=== PATIENT | male | born 1985 | race Caucasian/White ===

== ENCOUNTER 2017-01-12 07:36 | Day surgery (SDC) | payer BC ==
[~2017-01-12 07:36] MED LIST: ceFAZolin 2 GM in Premix Bag 1 BAG IV SCH
[2017-01-12] MEDS ORDERED: [UNRECOGNIZED DRUG - OTHER] NAS ONE (07:37)
[2017-01-12] MEDS ORDERED: Lactated Ringers 1,000 ML IV SCH (07:45)
[2017-01-12] MEDS ORDERED: Remifentanil 1 MG Vial ONE (07:49)
[2017-01-12] MEDS ORDERED: Propofol 200 MG/20 ML SDV ONE ×2 (07:53→12:27)
[2017-01-12] MEDS ORDERED: fentaNYL 100 MCG/2 ML SDV ONE (07:53)
[2017-01-12] MEDS ORDERED: Dexamethasone 4 MG/ML 5 ML MDV ONE ×2 (07:54→08:46)
[2017-01-12] MEDS ORDERED: Midazolam 1 MG/ML 2 ML SDV ONE (07:54)
[2017-01-12] MEDS ORDERED: Lidocaine 1% 20 ML MDV ONE (07:54)
[2017-01-12] MEDS ORDERED: EPINEPHrine 1 MG/ML SDV ONE (07:54)
[2017-01-12] MEDS ORDERED: Thrombin (Bovine) 5,000 Unit Kit ONE (07:55)
[2017-01-12] MEDS ORDERED: Oxymetazoline 0.05% Nasal Spray 15 ML Bottle ONE (07:55)
[2017-01-12] MEDS ORDERED: Lidocaine 2% with EPINEPHrine 1:100,000 20 ML MDV ONE (07:55)
--- NOTE | 2017-01-12 08:05 | PCM.PREANE ---
Preanesthetic Assessment - Anesthesia/Transfusion/Family Hx Anesthesia History: Prior Anesthesia Without Reaction Family History of Anesthesia Reaction: No Transfusion History: No Prior Transfusion(s) Intubation History: Unknown - Review of Systems General: No Symptoms Pulmonary: No Symptoms Cardiovascular: No Symptoms Gastrointestinal: No Symptoms Neurological: No Symptoms Other: Reports: None - Physical Assessment O2 Sat by Pulse Oximetry: 98 Respiratory Rate: 16 Vital Signs: Last Vital Signs Temp 36.7 C 01/12/17 07:52 Pulse 57 L 01/12/17 07:52 Resp 16 01/12/17 07:52 BP 144/84 H 01/12/17 07:52 Pulse Ox 98 01/12/17 07:52 Height: 1.83 m Weight: 86.183 kg ASA Class: 2 Mental Status: Alert & Oriented x3 Airway Class: Mallampati = 2 Dentition: Reports: Normal Dentition Thyro-Mental Finger Breadths: 3 Mouth Opening Finger Breadths: 3 ROM/Head Extension: Full Lungs: Clear to Auscultation, Normal Respiratory Effort Cardiovascular: Regular Rate, Regular Rhythm - Allergies Allergies/Adverse Reactions: Allergies Allergy/AdvReac Type Severity Reaction Status Date / Time No Known Allergies Allergy Verified 01/10/17 08:53 - Blood Blood Available: No - Anesthesia Plan Pre-Op Medication Ordered: None - Acknowledgements Anesthesia Type Planned: General Anesthesia Pt an Appropriate Candidate for the Planned Anesthesia: Yes Alternatives and Risks of Anesthesia Discussed w Pt/Guardian: Yes Pt/Guardian Understands and Agrees with Anesthesia Plan: Yes PreAnesthesia Questionnaire HEENT History: Reports: Sinusitis (nasal polyps) Respiratory History: Reports: Asthma (mild) - Past Surgical History Head Surgeries/Procedures: Reports: None HEENT Surgical History: Reports: Adenoidectomy, Naso-Sinus Surgery (polyps regrew, on prednisone 20 mg), Tonsillectomy - SUBSTANCE USE Smoking Status *Q: Never Smoker - HOME MEDS Home Medications: Home Meds Albuterol Sulfate [Proair Hfa] 1 - 2 puff INH ASDIRECTED PRN 01/10/17 [History] Dexamethasone [Decadron 0.1% Ophth Soln] 2 drop NASBOTH BID 01/10/17 [History] - CURRENT (IN HOUSE) MEDS Current Meds: Current Medications Cefazolin Sodium/Dextrose 2 gm (/ Premix) 50 mls @ 100 mls/hr IV ONETIME SEUN Lactated Ringer's (Ringers, Lactated) 1,000 mls @ 125 mls/hr IV ASDIRECTED SEUN Last Admin: 01/12/17 07:54 Dose: 125 mls/hr Discontinued Medications Dexamethasone (Dexamethasone) Confirm Administered Dose 20 mg .ROUTE .STK-MED ONE Stop: 01/12/17 07:55 Epinephrine HCl (Adrenalin 1:1000) Confirm Administered Dose 3 mg .ROUTE .STK- MED ONE Stop: 01/12/17 07:55 Fentanyl (Sublimaze) Confirm Administered Dose 100 mcg .ROUTE .STK-MED ONE Stop: 01/12/17 07:54 Propofol (Diprivan 50 Ml) Confirm Administered Dose 100 mls @ as directed .ROUTE .STK-MED ONE Stop: 01/12/17 07:50 Lidocaine HCl (Xylocaine 1%) Confirm Administered Dose 20 ml .ROUTE .STK-MED ONE Stop: 01/12/17 07:55 Lidocaine/Epinephrine (Xylocaine 2% With Epinephrine 1:100,000) Confirm Administered Dose 20 ml .ROUTE .STK-MED ONE Stop: 01/12/17 07:56 Midazolam HCl (Versed 1 Mg/Ml) Confirm Administered Dose 2 mg .ROUTE .STK-MED ONE Stop: 01/12/17 07:55 Oxymetazoline HCl (Afrin Original 0.05% Nasal [place]) Confirm Administered Dose 30 ml .ROUTE .STK-MED ONE Stop: 01/12/17 07:56 Propofol (Diprivan 20 Ml) Confirm Administered Dose 200 mg .ROUTE .STK-MED ONE Stop: 01/12/17 07:54 Remifentanil (Ultiva) Confirm Administered Dose 2 mg .ROUTE .STK-MED ONE Stop: 01/12/17 07:50 Thrombin (Thrombin-Jmi) Confirm Administered Dose 5,000 unit .ROUTE .STK-MED ONE Stop: 01/12/17 07:56
[2017-01-12] MEDS ORDERED: Ondansetron 4 MG/2 ML SDV ONE (08:46)
[2017-01-12] MEDS ORDERED: Rocuronium 10 MG/ML 10 ML Syringe ONE (08:46)
[2017-01-12] MEDS ORDERED: Neostigmine Methylsulfate 1 MG/ML 5 ML Syringe ONE (08:46)
--- NOTE | 2017-01-12 09:56 | PCM.HPR ---
H & P Addendum review - H & P Addendum Review Date of Original H & P: 12/21/16 Date Reviewed: 01/12/17 Time Reviewed: 09:40 Patient was Examined: No Changes (Patient was counselled again about the steroid impregnated snius splints that will / maybe inserted post op and post op instructions also provided. He agrees and understands.)
[2017-01-12] MEDS ORDERED: Labetalol 100 MG/20 ML MDV ONE (12:29)
[2017-01-12] MEDS ORDERED: ceFAZolin 1 GM Vial ONE (12:29)
[2017-01-12] MEDS ORDERED: Mineral Oil/Petrolatum Ophth Oint 3.5 GM Tube ONE (12:29)
[2017-01-12] MEDS ORDERED: fentaNYL 100 MCG/2 ML SDV IVPUSH PRN (12:32)
--- NOTE | 2017-01-12 13:48 | PCM.OPNOTE ---
- General Post-Op/Procedure Note Date of Surgery/Procedure: 01/12/17 Condition: Good Free Text/Narrative:: Pre operative diagnosis: Nasal obstruction, Bilateral nasal polyps, chronic sinusitis - dory maxillary, ethmoid, sphenoid and frontal. Post operative diagnosis: As above Procedure: Bilateral Endoscopic sinus surgery - middle meatal antrostomy right [ CPT 13857 ], middle meatus antrostomy and removal of polyp left [CPT 67659] uncinectomy, right sphenoidotomy with removal of polyp [CPT 02055] , posterior etmoidectomy (completion) with polypectomy - ant and posterior ethmoids [81952 ( 50)], exploration of frontal sinus - bilateral [CPT 38026 (50)] , Sinus Navigation [ 74303] Surgeon: Estephania Dickens MD Anesthesia: GA Anesthesiologist: Ajay Sexton Date of procedure: 01/12/2017 Indications: Patient presented to my office with the progressive bilateral nasal obstruction. Admission he was found to have bilateral grade 3 nasal polyps. He had previously undergone nasal septoplasty and bilateral balloons angioplasties with the ethmoidectomies 3 years ago. He underwent maximal medical therapy along with a course of oral and topical steroids - with extremely limited response or improvement in his symptoms. A CT scan of nose and paranasal sinuses was performed and showed extensive bilateral sinonasal polyposis and sinusitis. He was consented for surgery. Findings: Minimal rightward deviation of nasal septum. Small posterior inferior septal perforation. Bilateral grade 2 nasal polyps - the ethmoid, right sphenoid and left maxillary. Polypoid changes in right maxillary sinus mucosa and of bilateral uncinate processes. Also polypoid degeneration of the mucosa of middle turbinate. Creamy purulence from the left maxillary sinus cheesy material from the left maxillary sinus; polypoid degeneration of bilateral frontal recesses. irrigated. Operation details: An informed consent was obtained. A time out was performed and the patient was brought back to the operating room. Gen. anesthesia was administered with an endotracheal tube. Bilateral eyes were left exposed and lubricating ointment was inserted into the eyes. A pharyngeal pack was placed. Bilateral nasal cavities were packed with Afrin soaked pledgets. After appropriate period of decongestion - these were removed. A 0 degree rigid nasal endoscope was used to examine bilateral nasal cavities and photo documentation was obtained. The Medtronic compact fusion navigation system was set up and the Tracker was fixed to the fore head as per protocol and successful registration was obtained - findings as above. The left middle turbinate axilla and the polyps were infiltrated with 2% lidocaine and 1 in 100,000 epinephrine-a total of 2.0 ml was used. Similar injections were performed on the right side and further 2.0 ml was used on this side. A cottonoid pledget soaked in 1: 5000 epinephrine each was placed in the middle meatus, draping over the middle turbinate axilla - this was done bilaterally. The left side was addressed first. After appropriate period of decongestion the cottonoid pledgets were removed. The middle turbinate was gently medialized with freer elevator and the 0 rigid nasal endoscope was introduced into the middle meatus. Using straight Tricut microdebrider blade the nasal polyps from the left middle meatus were debrided. Most of the polypoid degenerated mucosa from the middle turbinate was also removed leaving the underlying healthy mucosa intact. Uncinectomy was performed using a microdebrider removing the uncinate process and overlying polypoid mucosa. The left maxillary sinus antrum was enlarged using through cuts and microdebrider. Polyps were also removed from the left maxillary sinus. A Irvin Halie was also used for this purpose. Extensive amount of whitish caseous material was suctioned out and purulence was also seen and suction. Left maxillary sinus was thoroughly irrigated with 150 mL of saline. Attention was then directed towards the residual cellular septations and polypoid mucosa in the region of posterior ethmoids and the residual cells were removed. The frontal recess was then examined and there was polypoid mucosa. The sinus was irrigated and suctioned out - clear return. The site was then packed with epinephrine soaked pledgets. Attention was then directed towards the right side. The cottonoid pledgets were removed. The middle turbinate was gently medialized with freer elevator and the 0 rigid nasal endoscope was introduced into the middle meatus. again using the microdebrider polyps from the ethmoid sinuses and the polypoid degeneration overlying the middle turbinate mucosa was removed. Healthy mucosa over the middle turbinate was preserved. The uncinate process was removed with the microdebrider along with overlying polypoid degenerated mucosa. The maxillary antrostomy was enlarged using through cuts and microdebrider. Minimal polypoid mucosa was observed - no kwaku polyposis of the maxillary sinus. The sinus was irrigated thoroughly with 100 mL of saline. Further polyps and polypoid mucosa was removed from the region of anterior and posterior ethmoids and the residual cellular septations and some of the residue intact posterior ethmoid cells were also removed. The sphenoidotomy was enlarged and polyps were removed from the sphenoid sinus. There are also polyps in the region of sphenoethmoid recess which were removed. The frontal recess was examined - polypoid mucosa was present. The site was also then packed with epinephrine soaked pledgets. The pledgets were removed bilaterally after ensuring hemostasis. Propel ethmoid sinus implants - 24 mm impregnated with Mometasone Furoate were inserted into bilateral middle meatus. MeroGel was injected bilaterally. During the procedure cottonoid pledgets soaked in 1: 1000 epinephrine and 1: 10, 000 thrombin were also used to achieve hemostasis. Hemostasis was ensured. Pharyngeal pack was removed. Specimens: Nasal polyps; contents of the suction trap IV fluids: 1400 ml Blood loss: 20 ml Blood products: nil Disposition: PACU for recovery Follow up: 1 week.
--- NOTE | 2017-01-12 14:30 | PCM.POSTAN ---
POST ANESTHESIA ASSESSMENT - MENTAL STATUS Mental Status: Alert - RESPIRATORY Respiratory Status: Respiratory Rate WNL, Airway Patent, O2 Saturation Stable - CARDIOVASCULAR CV Status: Pulse Rate WNL, Blood Pressure Stable - GASTROINTESTINAL GI Status: No Symptoms - POST OP HYDRATION Hydration Status: Adequate & Stable
--- NOTE | 2017-01-12 15:01 | PCM48HPAN ---
Post Anesthesia Note - EVALUATION WITHIN 48HRS OF ANESTHETIC Vital Signs in Normal Range: Yes Patient Participated in Evaluation: Yes Respiratory Function Stable: Yes Airway Patent: Yes Cardiovascular Function Stable: Yes Hydration Status Stable: Yes Pain Control Satisfactory: Yes Nausea and Vomiting Control Satisfactory: Yes Mental Status Recovered: Yes
[2017-01-12 15:40] VITALS: BP 133/67
== END 2017-01-12 15:35 | disposition home or self-care (01) ==
LOC: MW.SDS 07:36
PROVIDERS: ATTEND Otolaryngology
DX: J33.8 Other polyp of sinus (principal); J45.909 Unspecified asthma, uncomplicated; Z79.899 Other long term (current) drug therapy; Z98.890 Other specified postprocedural states
CPT/HCPCS: 31255; 31256; 31267; 31276; 31288; 61782; 88304; A9270; J0171; J0690; J1100; J2250; J2405; J3010; J7120; 00160; C1889; J2704

== ENCOUNTER 2017-07-30 08:20 | Emergency (ER) | payer BC ==
[~2017-07-30 08:20] MED LIST changes: +Etomidate 2 MG/ML 20 ML SDV IVPUSH ONE; +Succinylcholine 200 MG/10 ML MDV ONE; -ceFAZolin 2 GM in Premix Bag 1 BAG IV SCH
[2017-07-30] MEDS ORDERED: Sodium Chloride 0.9% 2.5 ML Syringe FLUSH PRN (08:35)
[2017-07-30] MEDS ORDERED: Sodium Chloride 0.9% 10 ML Syringe FLUSH PRN (08:35)
[2017-07-30] MEDS ORDERED: Sodium Chloride 0.9% 1,000 ML IV ONE ×2 (08:35→09:37)
--- NOTE | 2017-07-30 08:41 | EDM.PDOC ---
ED HPI GENERAL MEDICAL PROBLEM - General Stated Complaint: AMBULANCE Time Seen by Provider: 07/30/17 08:28 - History of Present Illness INITIAL COMMENTS - FREE TEXT/NARRATIVE: HISTORY AND PHYSICAL: History of present illness: The patient is a 32-year-old male with no significant medical history who presents via EMS after having a syncopal event and then some witnessed seizure- like activity. 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 He did not drink much fluids or eat very much yesterday. This morning he woke up and was acting normally per the girlfriend and he said he just didn't feel good and she went to give him some water and he passed out falling onto the ground. He was unconscious so she called EMS but he was spontaneously breathing. On EMS arrival they noticed some seizure-like activity and they began bag valve masking him. He was breathing spontaneously and maintaining his airway but he seemed to be somewhat clenched down. He did have loss of bowel and bladder. They gave Narcan without much response and brought him in to the ER and on arrival he was unresponsive and having spontaneous breath sounds but no spontaneous movement. Please see below for further information and course of events in the ED. According to mom and girlfriend he has no significant past medical history and has no social history. These also note that the family says that he did drink Mountain Dew yesterday and no other fluids. Review of systems: As per history of present illness and below otherwise all systems reviewed and negative. Past medical history: As per history of present illness and as reviewed below otherwise noncontributory. Surgical history: As per history of present illness and as reviewed below otherwise noncontributory. Social history: No reported history of drug or alcohol abuse. Family history: As per history of present illness and as reviewed below otherwise noncontributory. Physical exam: General: Well-developed well-nourished man who is nontoxic and initially was not moving spontaneously but breathing spontaneously. No visible evidence of any trauma was seen on his trunk. Initially the patient arrived without a c- collar but that was placed during the course of my evaluation. HEENT: Atraumatic, normocephalic, pupils reactive but they are small approximately 2 mm, sclera are injected negative for conjunctival pallor or scleral icterus, mucous membranes area dry throat clear, neck supple, nontender , trachea midline. Lungs: Clear to auscultation some occasional coarse breath sounds but no wheezing or stridor, breath sounds equal bilaterally, chest nontender. Heart: S1S2, regular, negative for clicks, rubs, or JVD. Abdomen: Soft, nondistended, nontender. Negative for masses or hepatosplenomegaly. Negative for costovertebral tenderness. Pelvis: Stable nontender. Genitourinary: Is no priapism and testicles are descended bilaterally Rectal: Patient has a small amount of stool at the anus and tone is intact Extremities: Atraumatic, negative for cords or calf pain. Neurovascular unremarkable. There is no evidence of any soft tissue defect or bony deformities appreciated in the extremities. Neuro: Visually the patient was not awake or alert but after placement of Segal patient started moving all extremities and responding to discomfort. He would open his eyes to voice and try to talk and was able to squeeze and answers simple questions. There is no focal deficits appreciated. Exam is difficult as the patient is still very drowsy. He was maintaining his airway Motor and sensory unremarkable throughout. Exam nonfocal. Back: There are no midline step-offs tenderness or defects of the thoracic or lumbar spine and no soft tissue evidence of any trauma is appreciated. Skin: Normal turgor no evidence of any rashes or lesions and no evidence of any gross soft tissue trauma is seen Diagnostics: EKG CBC CMP Tylenol and aspirin levels INR troponin alcohol level TSH UA UDS chest x-ray CT scan of the head and C-spine Therapeutics: IV O2 monitor IV fluids and Segal catheter Lola per flight team On my initial assessment because the patient's decreased mental status I was preparing to intubate the patient when the Segal was placed and the patient started moving spontaneously and interacting with us. His O2 sats are still tenuous but the patient has been run to CT for CT scan of the head and neck. Staff is with him and we will reevaluate him on return for his O2 sats and level of consciousness for elective intubation. 0846: Patient is back from CT and is still responding and answering questions moving all extremities. We have rolled him to examine back without any evidence of any trauma. He is maintaining his airway currently with O2 sats of 93%. Anesthesia is at bedside and we continue to monitor the patient and plan for transfer 0900: Case was discussed with Eddie WISEMAN in the ER at [facility] in [place] and he accepts the patient for transfer. Flight team is here at bedside and will give a dose of Keppra in route as this will be faster been getting that medication from pharmacy here I will continue to monitor all testing results and await CT scans and they will be pushed to the receiving facility Critical care time excluding procedures: 35min Impression: Syncope/seizure with altered mental status etiology unclear, dehydration Definitive disposition and diagnosis as appropriate pending reevaluation and review of above. - Related Data Allergies Allergy/AdvReac Type Severity Reaction Status Date / Time No Known Allergies Allergy Verified 07/30/17 08:35 Home Meds: Home Meds . [No Known Home Meds] 07/30/17 [History] Past Medical History HEENT History: Reports: Sinusitis Respiratory History: Reports: Asthma - Past Surgical History Head Surgeries/Procedures: Reports: None HEENT Surgical History: Reports: Adenoidectomy, Naso-Sinus Surgery, Tonsillectomy Social & Family History - Tobacco Use Smoking Status *Q: Never Smoker - Recreational Drug Use Drug Use in Last 12 Months: No ED ROS GENERAL - Review of Systems Review Of Systems: ROS reveals no pertinent complaints other than HPI. ED EXAM, GENERAL - Physical Exam Exam: See Below (See dictation) Course - Vital Signs Last Recorded V/S: Last Vital Signs Temp 35.2 C 07/30/17 08:20 Pulse 97 07/30/17 08:20 Resp 22 H 07/30/17 08:20 BP 100/56 L 07/30/17 08:20 Pulse Ox 95 07/30/17 08:20 - Orders/Labs/Meds Orders: Active Orders 24 hr Category Date Time Status Blood Glucose Check, Bedside [RC] ONETIME Care 07/30/17 08:32 Active Cardiac Monitoring [RC] . DIRECTED Care 07/30/17 08:32 Active EKG Documentation Completion [RC] STAT Care 07/30/17 08:32 Active Oxygen Therapy, ED [RC] ASDIRECTED Care 07/30/17 08:32 Active Pulse Oximetry [RC] ASDIRECTED Care 07/30/17 08:32 Active Cervical Spine wo Cont [CT] Stat Exams 07/30/17 08:34 Taken Chest 1V Frontal [CR] Stat Exams 07/30/17 08:35 Ordered Head wo Cont [CT] Stat Exams 07/30/17 08:34 Taken ACETAMINOPHEN [CHEM] Stat Lab 07/30/17 08:20 Received CBC WITH AUTO DIFF [HEME] Stat Lab 07/30/17 08:20 Results COMPREHENSIVE METABOLIC PN,CMP [CHEM] Stat Lab 07/30/17 08:20 Received DRUG SCREEN, URINE [URCHEM] Stat Lab 07/30/17 08:34 Ordered ETHANOL BLOOD MEDICAL [CHEM] Stat Lab 07/30/17 08:20 Received SALICYLATE [CHEM] Stat Lab 07/30/17 08:20 Received TROPONIN I [CHEM] Stat Lab 07/30/17 08:20 Received TSH [CHEM] Stat Lab 07/30/17 08:20 Received UA W/MICROSCOPIC [URIN] Stat Lab 07/30/17 08:34 Ordered Sodium Chloride 0.9% [Normal Saline] 1,000 ml Med 07/30/17 08:35 Active IV STAT Sodium Chloride 0.9% [Saline Flush] Med 07/30/17 08:35 Active 10 ml FLUSH ASDIRECTED PRN Sodium Chloride 0.9% [Saline Flush] Med 07/30/17 08:35 Active 2.5 ml FLUSH ASDIRECTED PRN Saline Lock Insert [OM.PC] Stat Oth 07/30/17 08:32 Ordered Medication Orders Sodium Chloride (Normal Saline) 1,000 mls @ 999 mls/hr IV STAT ONE Stop: 07/30/17 09:35 Sodium Chloride (Saline Flush) 10 ml FLUSH ASDIRECTED PRN PRN Reason: Keep Vein Open Sodium Chloride (Saline Flush) 2.5 ml FLUSH ASDIRECTED PRN PRN Reason: Keep Vein Open Labs: Laboratory Tests 07/30/17 07/30/17 Range/Units 08:20 08:20 WBC 15.77 H (4.0-11.0) K/uL RBC 4.92 (4.50-5.90) M/uL Hgb 14.3 (13.0-17.0) g/dL Hct 41.5 (38.0-50.0) % MCV 84.3 (80.0-98.0) fL MCH 29.1 (27.0-32.0) pg MCHC 34.5 (31.0-37.0) g/dL RDW Std Deviation 38.9 (28.0-62.0) fl RDW Coeff of Gary 13 (11.0-15.0) % Plt Count 195 (150-400) K/uL MPV 11.40 (7.40-12.00) fL Add Manual Diff YES Nucleated RBC % 0.0 /100WBC Nucleated RBCs # 0 K/uL INR 1.18 Meds: Medications Generic Name Dose Route Start Last Admin Trade Name Freq PRN Reason Stop Dose Admin Sodium Chloride 1,000 mls @ 999 mls/hr 07/30/17 08:35 Normal Saline IV 07/30/17 09:35 STAT ONE Sodium Chloride 10 ml 07/30/17 08:35 Saline Flush FLUSH ASDIRECTED PRN Keep Vein Open Sodium Chloride 2.5 ml 07/30/17 08:35 Saline Flush FLUSH ASDIRECTED PRN Keep Vein Open Departure - Departure Time of Disposition: 09:03 Disposition: DC/Tfer to Acute Hospital 02 Condition: Good, Fair Clinical Impression: Dehydration Altered mental status Qualifiers: Altered mental status type: unspecified Qualified Code(s): R41.82 - Altered mental status, unspecified Syncope Qualifiers: Syncope type: unspecified Qualified Code(s): R55 - Syncope and collapse - Discharge Information - My Orders Last 24 Hours: My Active Orders 07/30/17 08:20 ACETAMINOPHEN [CHEM] Stat CBC WITH AUTO DIFF [HEME] Stat COMPREHENSIVE METABOLIC PN,CMP [CHEM] Stat ETHANOL BLOOD MEDICAL [CHEM] Stat SALICYLATE [CHEM] Stat TROPONIN I [CHEM] Stat TSH [CHEM] Stat 07/30/17 08:32 Blood Glucose Check, Bedside [RC] ONETIME Cardiac Monitoring [RC] . DIRECTED EKG Documentation Completion [RC] STAT Oxygen Therapy, ED [RC] ASDIRECTED Pulse Oximetry [RC] ASDIRECTED Saline Lock Insert [OM.PC] Stat 07/30/17 08:34 Cervical Spine wo Cont [CT] Stat Head wo Cont [CT] Stat DRUG SCREEN, URINE [URCHEM] Stat UA W/MICROSCOPIC [URIN] Stat 07/30/17 08:35 Chest 1V Frontal [CR] Stat Sodium Chloride 0.9% [Normal Saline] 1,000 ml IV STAT Sodium Chloride 0.9% [Saline Flush] 10 ml FLUSH ASDIRECTED PRN Sodium Chloride 0.9% [Saline Flush] 2.5 ml FLUSH ASDIRECTED PRN - Assessment/Plan Last 24 Hours: My Active Orders 07/30/17 08:20 ACETAMINOPHEN [CHEM] Stat CBC WITH AUTO DIFF [HEME] Stat COMPREHENSIVE METABOLIC PN,CMP [CHEM] Stat ETHANOL BLOOD MEDICAL [CHEM] Stat SALICYLATE [CHEM] Stat TROPONIN I [CHEM] Stat TSH [CHEM] Stat 07/30/17 08:32 Blood Glucose Check, Bedside [RC] ONETIME Cardiac Monitoring [RC] . DIRECTED EKG Documentation Completion [RC] STAT Oxygen Therapy, ED [RC] ASDIRECTED Pulse Oximetry [RC] ASDIRECTED Saline Lock Insert [OM.PC] Stat 07/30/17 08:34 Cervical Spine wo Cont [CT] Stat Head wo Cont [CT] Stat DRUG SCREEN, URINE [URCHEM] Stat UA W/MICROSCOPIC [URIN] Stat 07/30/17 08:35 Chest 1V Frontal [CR] Stat Sodium Chloride 0.9% [Normal Saline] 1,000 ml IV STAT Sodium Chloride 0.9% [Saline Flush] 10 ml FLUSH ASDIRECTED PRN Sodium Chloride 0.9% [Saline Flush] 2.5 ml FLUSH ASDIRECTED PRN
[2017-07-30 09:23] LABS: CHLORIDE,CL 106 mmol/L (98-107); SODIUM,NA 142 mmol/L (136-148)
[2017-07-30 09:24] LABS: ACETAMINOPHEN < 2.0 ug/mL
[2017-07-30 10:04] VITALS: BP 96/55
--- NOTE | 2017-08-01 13:24 | CT ---
EXAM DATE: 07/30/17 PATIENT'S AGE: 32 Patient: TRUDY LAWLER Facility: [place], [place] Site . Site : 1987 Study: CT Head WO CONT [id number]/28/[id number] 8:48:26 AM Ordering Physician: Hal Armando Final Report: INDICATION: Pain. Low O2 sats. Arrived unconscious. TECHNIQUE: CT Head without contrast. COMPARISON: None FINDINGS: CSF spaces: No hydrocephalus. Brain parenchyma: The leach-white differentiation is maintained. No sign of mass , hemorrhage, or midline shift. Skull base and calvarium: No skull fracture. Nasopharyngeal airway noted. There is complete opacification of the right maxillary sinus and near complete opacification of the left. The sphenoid sinus, ethmoid air cells and frontal sinuses are completely opacified. The mastoid air cells are clear. IMPRESSION: 1. No acute intracranial abnormality. 2. Essentially complete opacification of the paranasal sinuses. There is high- density material in the left frontal sinus which is expanded. This is nonspecific but can be seen with fungal infection. Dictated by Regino Farrell MD @ 07/30/2017 9:33:23 AM Please note that all CT scans at this facility use dose modulation, iterative reconstruction, and/or weight-based dosing when appropriate to reduce radiation dose to as low as reasonably achievable. Dictated by: Regino Farrell MD @ 07/30/2017 09:33:30 (Electronic Signature) Report Signed by Proxy. JENIFER
--- NOTE | 2017-08-01 13:25 | CT ---
EXAM DATE: 07/30/17 PATIENT'S AGE: 32 Patient: TRUDY LAWLER Facility: [place], [place] Site . Site : 1985 Study: CT Spine Cervical WO CONT [id number]/28/2018 8:51:04 AM Ordering Physician: Hal Armando Final Report: INDICATION: Seizure. Unconscious at arrival. Low O2 sats. TECHNIQUE: CT cervical spine without contrast. COMPARISON: None FINDINGS: Evaluation is degraded by motion artifact. No traumatic malalignment. No acute fracture. No suspicious bone lesions. Intervertebral disc space height is preserved. Prevertebral soft tissues are normal. Near-complete opacification of the visualized paranasal sinuses. Nasopharyngeal airway noted. IMPRESSION: No acute fracture or traumatic malalignment. Dictated by Regino Farrell MD @ 07/30/2017 9:13:28 AM Please note that all CT scans at this facility use dose modulation, iterative reconstruction, and/or weight-based dosing when appropriate to reduce radiation dose to as low as reasonably achievable. Dictated by: Regino Farrell MD @ 07/30/2017 09:13:36 (Electronic Signature) Report Signed by Proxy. [facility]
--- NOTE | 2017-08-01 13:26 | CR ---
EXAM DATE: 07/30/17 PATIENT'S AGE: 32 Patient: TRUDY LAWLER Facility: [place], [place] Site . Site : 1985 Study: XRay Chest [id number]/28/2018 9:05:30 AM Ordering Physician: Hal Armando Final Report: INDICATION: Shortness of breath. TECHNIQUE: Chest 1 view. COMPARISON: None FINDINGS: Cardiovascular and mediastinum: Heart size and vasculature are normal in caliber and appearance. Mediastinum is within normal limits. Lungs and pleural space: Lungs are clear. No pleural effusion. No pneumothorax. Bones and soft tissues: No acute findings. IMPRESSION: No acute pulmonary process. Dictated by Regino Farrell MD @ 07/30/2017 9:19:45 AM Dictated by: Regino Farrell MD @ 07/30/2017 09:19:52 (Electronic Signature) Report Signed by Proxy. JENIFER
== END 2017-07-30 09:20 ==
LOC: MW.ED 08:20
DX: E86.0 Dehydration (principal); R41.82 Altered mental status, unspecified; J45.909 Unspecified asthma, uncomplicated
CPT/HCPCS: 36415; 51702; 70450; 71045; 72125; 80053; 84443; 84484; 85025; 85610; 93005; 96360; 99291; G0480; J0330; J7040; 99284

== ENCOUNTER 2018-06-17 10:15 | Emergency (ER) | payer BC ==
[2018-06-17 10:25] VITALS: BP 102/43
--- NOTE | 2018-06-17 11:07 | EDM.PDOC ---
ED HPI GENERAL MEDICAL PROBLEM - General Chief Complaint: Laceration Stated Complaint: CUT ON THUMB Time Seen by Provider: 06/17/18 10:17 Source of Information: Reports: Patient History Limitations: Reports: No Limitations - History of Present Illness INITIAL COMMENTS - FREE TEXT/NARRATIVE: HISTORY AND PHYSICAL: History of present illness: Patient is a 33-year-old male who presents to the emergency room with complaints of a laceration to the corner of his left thumb. This does involve a triangle aspect of the corner of the nail bed. He states his tetanus has been updated within the last 10 years Review of systems: As per history of present illness and below otherwise all systems reviewed and negative. Past medical history: As per history of present illness and as reviewed below otherwise noncontributory. Surgical history: As per history of present illness and as reviewed below otherwise noncontributory. Social history: See social history for further information Family history: As per history of present illness and as reviewed below otherwise noncontributory. Physical exam: General: Well-developed and well-nourished 33-year-old male. Alert and oriented. Nontoxic appearing and in no acute distress. HEENT: Atraumatic, normocephalic, pupils equal and reactive bilaterally, negative for conjunctival pallor or scleral icterus, mucous membranes moist, TMs normal bilaterally, throat clear, neck supple, nontender, trachea midline. No drooling or trismus noted. No meningeal signs. No hot potato voice noted. Lungs: Clear to auscultation, breath sounds equal bilaterally, chest nontender. Heart: S1S2, regular rate and rhythm without overt murmur Abdomen: Soft, nondistended, nontender. Negative for masses or hepatosplenomegaly. Negative for costovertebral tenderness. Pelvis: Stable nontender. Genitourinary: Deferred. Rectal: Deferred. Skin: 3 cm laceration extending from the distal lateral aspect of the left thumb across the corner of the nail bed into the pad of the thumb. Otherwise skin is intact, warm, dry. No lesions or rashes noted. Extremities: Atraumatic, negative for cords or calf pain. Neurovascular unremarkable. Neuro: Awake, alert, oriented. Cranial nerves II through XII unremarkable. Cerebellum unremarkable. Motor and sensory unremarkable throughout. Exam nonfocal. Notes: Area was anesthetized with 1% lidocaine. Chlorhexidine and wound wash were used to thoroughly irrigate and cleanse the area. Usual customary procedures were followed for suture placement. 5-0 chromic, #8 sutures were placed. One 4-0 nylon was used to keep the nail intact. Patient tolerated well. Supportive care measures were reviewed and discussed. Voices understanding and is agreeable to plan of care. Denies any further questions or concerns at this time. Diagnostics: None Therapeutics: Wound care, 1% lidocaine, nonstick dressing Prescription: Tramadol (#15) Impression: Finger laceration involving the nail bed, left thumb Plan: 1. Keep the area clean and dry. Continue to monitor for signs of infection. He may wash your hands in shower as usual. Pat dry afterwards. Keep the area covered while at work. Sutures are dissolvable. The suture through the nail does need to be removed in 7-10 days 2. Tylenol and/or ibuprofen as needed for pain management. 3. Follow-up with your primary care provider or the hand surgeon as we discussed. Return to the ED as needed and as discussed. Definitive disposition and diagnosis as appropriate pending reevaluation and review of above. Left Thumb Pain Score (Numeric/FACES): 5 - Related Data Allergies Allergy/AdvReac Type Severity Reaction Status Date / Time No Known Allergies Allergy Verified 06/17/18 10:20 Home Meds: Home Meds Budesonide/Formoterol Fumarate [Symbicort 80-4.5 Mcg Inhaler] 10.2 gm PO DAILY 06/17/18 [History] Montelukast [Singulair] 10 mg PO DAILY 06/17/18 [History] Past Medical History HEENT History: Reports: Sinusitis Respiratory History: Reports: Asthma - Infectious Disease History Infectious Disease History: Reports: None - Past Surgical History Head Surgeries/Procedures: Reports: None HEENT Surgical History: Reports: Adenoidectomy, Naso-Sinus Surgery, Tonsillectomy Social & Family History - Family History Family Medical History: Noncontributory - Tobacco Use Smoking Status *Q: Never Smoker Second Hand Smoke Exposure: No - Caffeine Use Caffeine Use: Reports: Coffee - Recreational Drug Use Recreational Drug Use: No ED ROS GENERAL - Review of Systems Review Of Systems: ROS reveals no pertinent complaints other than HPI. ED EXAM, SKIN/RASH Exam: See Below (See dictation) ED SKIN PROCEDURES - Laceration/Wound Repair Left Thumb Lac/Wound length In cm: 3 Appearance: Subcutaneous, Irregular, Clean Distal NVT: Neuro & Vascular Intact, No Tendon Injury Anesthetic Type: Local Local Anesthesia - Lidocaine (Xylocaine): 1% Plain Local Anesthetic Volume: 4cc Skin Prep: Chlorhexidine (Hibiciens), Saline, Sterile Drape Saline Irrigation (cc's): 30 Exploration/Debridement/Repair: Wound Explored, In a Bloodless Field, No Foreign Material Found Closed with: Sutures Suture Size: other (5-0 Chromic and 5-0 Nylone) Suture Type: Interrupted, Simple # of Sutures: 8 (#1 Nylon) Sterile Dressing Applied: Provider Tetanus Status Addressed: Yes Complications: No Course - Vital Signs Last Recorded V/S: Last Vital Signs Temp 96.4 F 06/17/18 10:21 Pulse 68 06/17/18 10:21 Resp 18 06/17/18 10:21 BP 102/43 L 06/17/18 10:21 Pulse Ox 96 06/17/18 10:21 - Orders/Labs/Meds Meds: Medications Discontinued Medications Generic Name Dose Route Start Last Admin Trade Name Hue PRN Reason Stop Dose Admin Lidocaine HCl 5 ml 06/17/18 10:41 Xylocaine-Mpf 1% INJECT 06/17/18 10:42 ONETIME ONE Departure - Departure Time of Disposition: 11:07 Disposition: Home, Self-Care 01 Clinical Impression: Laceration - Discharge Information Instructions: Laceration Care, Adult, [facility] Referrals: PCP,Unknown [Primary Care Provider] - Forms: ED Department Discharge Additional Instructions: The following information is given to patients seen in the emergency department who are being discharged to home. This information is to outline your options for follow-up care. We provide all patients seen in our emergency department with a follow-up referral. The need for follow-up, as well as the timing and circumstances, are variable depending upon the specifics of your emergency department visit. If you don't have a primary care physician on staff, we will provide you with a referral. We always advise you to contact your personal physician following an emergency department visit to inform them of the circumstance of the visit and for follow-up with them and/or the need for any referrals to a consulting specialist. The emergency department will also refer you to a specialist when appropriate. This referral assures that you have the opportunity for follow-up care with a specialist. All of these measure are taken in an effort to provide you with optimal care, which includes your follow-up. Under all circumstances we always encourage you to contact your private physician who remains a resource for coordinating your care. When calling for follow-up care, please make the office aware that this follow-up is from your recent emergency room visit. If for any reason you are refused follow-up, please contact the [facility] at and asked to speak to the emergency department charge nurse. [facility] [address] [place] [id number] [id number] 1. Keep the area clean and dry. Continue to monitor for signs of infection. He may wash your hands in shower as usual. Pat dry afterwards. Keep the area covered while at work. Sutures are dissolvable. The suture through the nail does need to be removed in 7-10 days 2. Tylenol and/or ibuprofen as needed for pain management. 3. Follow-up with your primary care provider or the hand surgeon as we discussed. Return to the ED as needed and as discussed.
== END 2018-06-17 11:52 | disposition home or self-care (01) ==
LOC: MW.ED 10:15
DX: S61.112A Laceration without foreign body of left thumb with damage to nail, initial encounter (principal); J45.909 Unspecified asthma, uncomplicated; Z79.899 Other long term (current) drug therapy; W26.0XXA Contact with knife, initial encounter; Y92.009 Unspecified place in unspecified non-institutional (private) residence as the place of occurrence of the external cause
CPT/HCPCS: 12002; 99282; J2001